=== PATIENT | male | born 1965 | race Caucasian/White ===

== ENCOUNTER 2017-03-03 09:13 | Outpatient (CLI) | payer OTHER ==
[2017-03-03 09:56] LABS: eGFR (African) > 60; eGFR (Non-African) > 60
== END 2017-03-03 09:14 ==
LOC: LAB 09:13
PROVIDERS: ATTEND Family Medicine
DX: E03.9 Hypothyroidism, unspecified (principal); Z00.00 Encounter for general adult medical examination without abnormal findings
CPT/HCPCS: 36415; 80053; 80061; 84443

== ENCOUNTER 2019-07-04 15:33 | Outpatient (CLI) | payer OTHER | END 2019-07-04 15:40 | LOC: LABRHC 15:33 | PROVIDERS: ATTEND Family Medicine | DX: E03.9 Hypothyroidism, unspecified (principal); Z12.5 Encounter for screening for malignant neoplasm of prostate | CPT/HCPCS: 84153; 84443 ==